=== PATIENT | female | born 1960 | race African-American/Black ===

== ENCOUNTER 2016-05-19 22:07 | Emergency (ER) ==
[2016-05-19 22:13] VITALS: BP 148/88
--- NOTE | 2016-05-19 22:27 | PROVIDER DOCUMENTATION ---
HPI-EENT General <AngelJanineJuliannaSivakumar ChapoRosa - Last Filed: 05/19/16 22:32> - General Source: patient - History of Present Illness-EENT General EENT Location: reports: facial Quality of Pain: reports: aching Severity: reports: moderate Onset/Duration: reports: this afternoon Timing: reports: still present Prearrival Treatment: Initiated over the counter meds Associated Symptoms: reports: facial pain/swelling Locality of Occurance: Home Similar Symptoms Previously?: No Recently seen or treated by another doctor?: No <Oliva Larkin - Last Filed: 05/19/16 22:38> - General Chief Complaint: Facial Pain Stated Complaint: RT SIDE NUMBNESS OF FACE Time Seen by Provider: 05/19/16 22:22 Allergies/Adverse Reactions: Patient Allergies Allergy/AdvReac Type Severity Reaction Status Date / Time Penicillins Allergy RASH Verified 05/19/16 22:15 Sulfa (Sulfonamide Allergy RASH Verified 05/19/16 22:15 Antibiotics) Home Medications: Home Medication List Medication Instructions Recorded Confirmed Last Taken Type Cephalexin [Keflex] 500 mg PO TID #30 capsule 05/19/16 Unknown Rx Exemestane [Aromasin] 25 mg PO DAILY 05/19/16 05/19/16 05/19/16 History Hydrochlorothiazide 25 mg PO DAILY 05/19/16 05/19/16 05/19/16 History LISINOpril [Prinivil] 10 mg PO DAILY 05/19/16 05/19/16 05/19/16 History Metformin [Glucophage] 1,000 mg PO BID CC 05/19/16 05/19/16 05/19/16 History Venlafaxine E.r. [Effexor Xr] 75 mg PO DAILY 05/19/16 05/19/16 05/19/16 History - History of Present Illness-EENT General Nature of Presenting Problem: 55 year old F presents to the ED with a cc of right facial pain and numbness. Pt states that pain began this afternoon and then later on began feeling numb. PT states that she took 4 Aspirin just TURNER OFF. (Oliva Larkin) Review of Systems - Adult - REVIEW OF SYSTEMS - ADULT Constitutional: denies: chills, fever Eyes: reports: no symptoms reported Ears, Nose, Mouth & Throat: reports: other (facial pain). denies: throat pain, throat swelling Cardiovascular: denies: chest pain, palpitations Respiratory: denies: cough, shortness of breath Gastrointestinal: denies: abdominal pain, nausea, vomiting Genitourinary: reports: no symptoms reported Musculoskeletal: reports: no symptoms reported Integumentary: reports: no symptoms reported Neurological: reports: no symptoms reported Psychiatric: reports: no symptoms reported Endocrine: reports: no symptoms reported Hematologic/Lymphatic: reports: no symptoms reported Allergic/Immunologic: reports: no symptoms reported All Other Systems: Reviewed and Negative <Oliva Larkin - Last Filed: 05/19/16 22:38> Past History - Adult - PAST MEDICAL HISTORY-ADULT Review of Records: reports: Nursing Assessment Review, Medications Reviewed Major Childhood Illnesses: reports: denies history Cardiovascular: reports: HTN Obstetrical/Gynecological: reports: other (breast cancer) - PRIOR SURGERIES/PROCEDURES Surgical/Procedure History: reports: hysterectomy, other (lumpectomy x2) - IMMUNIZATION STATUS Childhood Immunizations: See Nurse Assessment Flu Vaccine: See Nurse Assessment - SOCIAL HISTORY Smoking: non-smoker Substance Use: none/never Alcohol Use Frequency: never <Oliva Larkin - Last Filed: 05/19/16 22:38> Physical Exam- EENT - Physical Exam EENT Initial Vital Signs Reviewed: Yes General Appearance: appears well, alert, no apparent distress Throat Exam: normal mouth inspection, pharynx normal, other (minimal swelling to right facial area) Respiratory: chest non-tender, lungs clear, normal breath sounds Cardiovascular: normal peripheral pulses, regular rate, rhythm, no edema Integumentary: normal color, normal turgor, warm/dry Neurologic: sensory deficit (right facial) Psych/Mental Status: normal mood/affect, normal thought content, normal thought process, oriented x 3 <Oliva Larkin - Last Filed: 05/19/16 22:38> Progress <Sivakumar Quevedo - Last Filed: 05/19/16 22:32> <Oliva Larkin - Last Filed: 05/19/16 22:38> - PLAN OF CARE/RESULTS Progress/Plan/Lab Results: plan of care: medications Orders Category Date Time Status CephALEXIN [Keflex] Med 05/19/16 22:31 Discontinued 500 mg PO NOW ONE Vital Signs - 24 hr 05/19/16 22:09 Temperature 97.9 F Pulse Rate 98 H Respiratory 18 Rate Blood Pressure 148/88 O2 Sat by Pulse 100 Oximetry Pt given results and will be d/c home w/ rx to follow up with PCP. Pt verbally understood instructions. PT remained clinically stable throughout the course of the ED stay and will return if symptoms worsen. (Oliva Larkin) Departure - Departure Time of Disposition Order: 22:32 Certified Medical Emergency: Emergent <Sivakumar Quevedo - Last Filed: 05/19/16 22:32> <Oliva Larkin - Last Filed: 05/19/16 22:38> - Departure DIAGNOSIS: Dental abscess Disposition: HOME 01 Condition: Good Additional Instructions: contact your dentist to arrange follow up ED Follow Up Instructions: You have been treated by a care provider in the Emergency Department. These instructions are being provided to you so you can have an understanding of how to care for yourself upon discharge. Upon discharge from the Emergency Department, you are responsible for making arrangements for follow-up care by a physician of your choice. Take all prescribed medications as directed. Return to the Emergency Department immediately for any new or worsening symptoms. You may call the Physician Referral phone number at [phone] to obtain a list of Physicians who are taking new patients. Prescriptions: Cephalexin [Keflex] 500 mg PO TID #30 capsule Referrals: Dione Brar MD [Primary Care Provider] - Instructions: Abscessed Tooth, [id number] Attestation - Scribe Verification/Attestation Scribe:: Oliva Larkin Acting as Scribe for:: Sivakumar Quevedo Scribe documention review:: This chart was documented by a scribe and accurately reflects the service the provider performed and the decisions made by the provider. <Oliva Larkin - Last Filed: 05/19/16 22:38> Physician Attestation - Physician Attestation I, the provider, attest to the following statement:: Sivakumar Quevedo Physician documentation Attestation:: This documentation recorded by the scribe accurately reflects the service I personally performed and the decisions made by me. <Oliva Larkin - Last Filed: 05/19/16 22:38>
[2016-05-19] MEDS ORDERED: KEFLEX PO ONE (22:31)
== END 2016-05-19 22:41 | disposition home or self-care (01) ==
LOC: ED 22:07
DX: K04.7 Periapical abscess without sinus (principal); R51 Headache; R20.0 Anesthesia of skin; I10 Essential (primary) hypertension; Z79.899 Other long term (current) drug therapy; Z85.3 Personal history of malignant neoplasm of breast